=== PATIENT | female | born 1995 | race Hispanic/Latino ===

== ENCOUNTER 2021-12-14 00:27 | Emergency (ER) | payer MEDICAID ==
[~2021-12-14] VITALS: Ht 154.9 cm; Wt 96.2 kg
[2021-12-14 01:13] LABS: BASOPHILS % (AUTO) 0.4 % (0.0-5.0); EOSINOPHILS % (AUTO) 2.8 % (0.0-8.0); HEMATOCRIT 37.1 % (36-48); LYMPHOCYTES % (AUTO) 43.7 % (21.0-51.0); MEAN CORPUSCULAR HEMOGLOBIN 30.1 pg (27.0-33.0); MEAN CORPUSCULAR VOLUME 88.8 fL (79-99); NEUTROPHILS % (AUTO) 44.7 % (40.0-77.0); PLATELET COUNT (AUTO) 362 K/uL (130-400); RED BLOOD CELL COUNT(AUTO) 4.18 MIL/uL (4.00-5.50); RED CELL DISTRIBUTION WIDTH 13.2 % (11.0-15.5); WHITE BLOOD COUNT (AUTO) 7.1 K/uL (4.8-10.8)
[2021-12-14 01:19] LABS: CREATININE 0.6 mg/dL (0.5-1.5); POTASSIUM 3.7 mmol/L (3.5-5.1)
[2021-12-14 01:29] LABS: ALBUMIN 3.8 g/dL (3.5-5.0); TOTAL PROTEIN, SERUM 7.8 g/dL (6.0-8.3)
[2021-12-14 02:15] VITALS: BP 121/63
== END 2021-12-14 02:21 | disposition home or self-care (01) ==
LOC: EDH 00:27
DX: O20.0 Threatened abortion (principal); Z3A.01 Less than 8 weeks gestation of pregnancy
CPT/HCPCS: 36415; 80053; 84702; 85025; 86900; 86901

== ENCOUNTER 2022-09-17 20:53 | Emergency (ER) | payer MEDICAID ==
[~2022-09-17] VITALS: Ht 154.9 cm; Wt 93.9 kg
[2022-09-17 22:07] VITALS: BP 123/66
[2022-09-17 22:46] LABS: BASOPHILS % (AUTO) 0.2 % (0.0-5.0); EOSINOPHILS % (AUTO) 2.3 % (0.0-8.0); LYMPHOCYTES % (AUTO) 27.8 % (21.0-51.0); MEAN CORPUSCULAR HEMOGLOBIN 29.7 pg (27.0-33.0); MEAN CORPUSCULAR HGB CONC 33.9 g/dL (32.0-36.0); MEAN CORPUSCULAR VOLUME 87.5 fL (79-99); MONOCYTES % (AUTO) 8.1 % (3.0-13.0); NEUTROPHILS % (AUTO) 61.4 % (40.0-77.0); PLATELET COUNT (AUTO) 327 K/uL (130-400); RED BLOOD CELL COUNT(AUTO) 3.77 MIL/uL (4.00-5.50); RED CELL DISTRIBUTION WIDTH 13.1 % (11.0-15.5); WHITE BLOOD COUNT (AUTO) 9.1 K/uL (4.8-10.8)
[2022-09-17 23:00] LABS: CREATININE 0.7 mg/dL (0.5-1.5); POTASSIUM 3.5 mmol/L (3.5-5.1)
[2022-09-17 23:11] LABS: APPEARANCE,URINE CLOUDY (CLEAR); BILIRUBIN,URINE NEGATIVE (NEGATIVE); COLOR,URINE YELLOW (YELLOW); GLUCOSE, URINE (UA) NEGATIVE (NEGATIVE); KETONES,URINE NEGATIVE (NEGATIVE); LEUKOCYTE ESTERASE ,URINE 500 Leu/uL (NEGATIVE); NITRATE,URINE NEGATIVE (NEGATIVE); OCCULT BLOOD,URINE NEGATIVE (NEGATIVE); PH,URINE 6.5 (5.0-8.0); PROTEIN,URINE 20 mg/dL (NEGATIVE)
[2022-09-17 23:13] LABS: BACTERIA,URINE MOD /HPF (None Seen); MUCUS,URINE RARE LPF (None Seen); RBC,URINE 26-50 /HPF (0-1); SQUAMOUS EPITHELIAL CELL,UR MOD /HPF (0-2); WBC,URINE 26-50 /HPF (0-1)
[2022-09-18] MEDS ORDERED: CEPHALEXIN 500 MG CAPSULE PO ONE (01:30)
[2022-09-18] MEDS ORDERED: CEPH500B PO (01:32)
== END 2022-09-18 01:39 | disposition home or self-care (01) ==
LOC: EDH 20:53
DX: O23.41 Unspecified infection of urinary tract in pregnancy, first trimester (principal); N39.0 Urinary tract infection, site not specified; Z3A.13 13 weeks gestation of pregnancy
CPT/HCPCS: 36415; 76805; 80048; 81001; 85025; 87077; 87088; 87186

== ENCOUNTER 2023-01-25 23:15 | Observation (INO) | payer MEDICAID, OTHER ==
[~2023-01-25] VITALS: Ht 154.9 cm; Wt 91.6 kg
[~2023-01-25 23:15] MED LIST: CEPH500B PO
[2023-01-25 23:18] VITALS: BP 115/67; PULSE 100; RESP 16
[2023-01-25 23:52] LABS: APPEARANCE,URINE CLEAR (CLEAR); BILIRUBIN,URINE NEGATIVE (NEGATIVE); COLOR,URINE YELLOW (YELLOW); GLUCOSE, URINE (UA) 100 mg/dL (NEGATIVE); KETONES,URINE 5 mg/dL (NEGATIVE); LEUKOCYTE ESTERASE ,URINE MODERATE Leu/uL (NEGATIVE); NITRATE,URINE NEGATIVE (NEGATIVE); OCCULT BLOOD,URINE MODERATE (NEGATIVE); PH,URINE 5.5 (5.0-8.0); PROTEIN,URINE 100 mg/dL (NEGATIVE)
[2023-01-25 23:56] LABS: ADD UA MICROSCOPIC YES
[2023-01-25 23:59] LABS: WBC,URINE 26-50 /HPF (0-1)
[2023-01-26] LABS: BACTERIA,URINE Moderate /HPF (None Seen); TRICHOMONAS,URINE Many /LPF (None Seen)
[2023-01-26 00:01] LABS: AMPHET/METH SCREEN,URINE NEGATIVE (NEGATIVE); BARBITURATE SCREEN, URINE NEGATIVE (NEGATIVE); BENZODIAZEPINES SCREEN,URINE NEGATIVE (NEGATIVE); CANNABINOID SCREEN,URINE NEGATIVE (NEGATIVE); COCAINE SCREEN,URINE NEGATIVE (NEGATIVE); OPIATE SCREEN,URINE NEGATIVE (NEGATIVE); PHENCYCLIDINE SCREEN,URINE NEGATIVE (NEGATIVE)
== END 2023-01-26 00:45 | disposition home or self-care (01) ==
LOC: EDH 23:15 → LDH 23:16 → EDH 23:25
PROVIDERS: ADMIT Obstetrics & Gynecology; ATTEND Obstetrics & Gynecology
DX: O46.93 Antepartum hemorrhage, unspecified, third trimester (principal); O26.893 Other specified pregnancy related conditions, third trimester; K59.00 Constipation, unspecified; Z79.899 Other long term (current) drug therapy; Z3A.32 32 weeks gestation of pregnancy
CPT/HCPCS: 80305; 87088; 81001; G0379; G0378

== ENCOUNTER 2023-03-12 12:11 | Observation (INO) | payer OTHER ==
[~2023-03-12] VITALS: Ht 154.9 cm; Wt 90.7 kg
[2023-03-12 13:06] LABS: APPEARANCE,URINE TURBID (CLEAR); BILIRUBIN,URINE NEGATIVE (NEGATIVE); COLOR,URINE LIGHT-ORANGE (YELLOW); GLUCOSE, URINE (UA) NEGATIVE (NEGATIVE); KETONES,URINE NEGATIVE (NEGATIVE); LEUKOCYTE ESTERASE ,URINE 500 Leu/uL (NEGATIVE); NITRATE,URINE NEGATIVE (NEGATIVE); OCCULT BLOOD,URINE MODERATE (NEGATIVE); PROTEIN,URINE 100 mg/dL (NEGATIVE)
[2023-03-12 13:08] LABS: ADD UA MICROSCOPIC YES
[2023-03-12 13:13] LABS: RBC,URINE TNTC /HPF (0-1); SQUAMOUS EPITHELIAL CELL,UR MANY /HPF (0-2); WBC CLUMP MANY /HPF (0-1); WBC,URINE TNTC /HPF (0-1)
== END 2023-03-12 15:50 | disposition home or self-care (01) ==
LOC: LDH 12:11
PROVIDERS: ADMIT Internal Medicine; ATTEND Internal Medicine
DX: O26.893 Other specified pregnancy related conditions, third trimester (principal); N89.8 Other specified noninflammatory disorders of vagina; Z79.899 Other long term (current) drug therapy; Z3A.38 38 weeks gestation of pregnancy
CPT/HCPCS: 87088; 81001; 76805; G0378 ×3; G0379

== ENCOUNTER 2025-03-21 11:39 | Emergency (ER) | payer MEDICAID ==
[~2025-03-21] VITALS: Ht 154.9 cm; Wt 95.3 kg
--- NOTE | 2025-03-21 12:16 | ERN ---
General Chief Complaint: Earache Stated Complaint: EARS CLOGGED Time Seen by MD: 11:50 Source: patient History of Present Illness Initial Comments 30-year-old female who is at 35 weeks gestation presented to ED with symptoms of runny nose, sore throat, cough since 3 days patient. Patient also started to have clogged ears since yesterday night. Patient denies fevers, chills, s hortness of breath, chest pain. Allergies: Coded Allergies: No Known Allergies (Unverified Allergy, Unknown, 12/14/21) Home Meds Active Scripts Cephalexin Monohydrate (Keflex) 500 Mg Cap, 500 MG PO QID for 7 Days, #28 CAP Prov:JAMAAL YO Sr., MD 09/18/22 Past Medical History Past Medical History: No Pertinent History Past Surgical History: None Social History Social History: Negative Female( History) : 3 Para: 1 Aborts: 1 ROS Dictation REVIEW OF SYSTEMS CONSTITUTIONAL: Denies fevers, chills, or night sweats. No unintentional weight loss reported. NEUROLOGICAL: Denies headache, motor weakness, sensory deficit, vertigo/spinning sensation CARDIOVASCULAR: Denies any exertional angina, dyspnea on exertion, orthopnea, paroxysmal nocturnal dyspnea, palpitations PULMONARY: Admits to runny nose, dry cough and sore throat. Denies any shortness of breath,, phlegm/sputum, hemoptysis, pleuritic chest pain. GASTROINTESTINAL: Denies any type of dysphagia to either liquids or solids. Denies nausea, vomiting, pyrosis, early satiety, abdominal pain, diarrhea, constipation GENITOURINARY: Denies frequency, urgency, nocturia, hematuria or incontinence DERMATOLOGIC: Denies rashes, itching, redness. Physical Exam Physical Exam Dictation VITAL SIGNS: Reviewed. GENERAL APPEARANCE: Alert, oriented x3 HEAD AND FACE: Non-traumatic. EYES: PERRL, pink conjunctivas, eyelid no trauma, anterior chamber clear. EARS: Pinnas intact and no signs of trauma or erythema. Left ear canal with moderate amount of wax. Patent right external artery canal. TMs no erythema. NOSE: Watery drainage, no bleeding. OROPHARYNX: Mouth normal, teeth no caries, tongue pink. Pharynx clear, no erythema. Tonsils no exudates, no abscesses noted. Mucous membrane moist. NECK: Supple, non-tender, no thyromegaly, no masses, no JVD, no bruits. BREAST: Deferred. CHEST: No tenderness, no crepitus, no paradoxical movement, no retractions. LUNGS: Clear, well-ventilated, symmetric, no rales, no wheezing, no rhonchi, no stridor, good breath sounds bilaterally. HEART: Regular rate, regular rhythm, no murmur, no gallops. VASCULAR: No peripheral edema. ABDOMEN: Soft, positive bowel sounds, nondistended, no guarding, nontender, no rebound, no masses no hepatomegaly, no splenomegaly, no Michael's sign, no hernias. RECTAL: Deferred. GENITAL: Deferred. NEUROLOGICAL: Normal speech, gross motor function intact, gross sensory function intact. MUSCULOSKELETAL: Neck nontender, full range of motion, back nontender, full range of motion. EXTREMITIES: Nontender, full range of motion. SKIN: Color pink, dry, no turgor, no rash, no lacerations, no abrasions, no contusions. LYMPHATICS: Deferred. Results Laboratory and Microbiology Lab and Micro Result Laboratory Tests Test 03/21/25 12:05 Influenza Type A Antigen Negative For Type A Influenza Type B Antigen Negative For Type B SARS-CoV-2 Antigen (Rapid) PRESUMPTIVE NEGATIVE Group A Streptococcus Rapid positive (NEGATIVE) *A Labs Reviewed?: Yes MDM MDM: Differential diagnosis: Acute rhinosinusitis, Acute pharyngitis, Post nasal drip, maxillary sinusitis Rationale: Tests considered and ordered secondary to shared decision making include: Previous outside records reviewed: Old ER visits. Risk of complication and/or morbidity or mortality of patient management: None Medications-Per medication reconciliation Need for hospitalization: Patient does not meet criteria for hospitalization. Need for emergency major/minor surgery: No There are no social concerns with this patient. Prescription drug management Prescriptions will include symptomatic care Patient's prior external medical records from other ER visits were reviewed by me as indicated. Prior testing and results from previous visits were reviewed. Prior tests were taken into account with medical decision making and resource utilization, independent historian/historians were used to obtain complete medical history. I independently interpreted the test that were performed, results were reviewed by me and considered findings on radiology if ordered. * Medical management and examination interpretation discussions were had by me with other qualified healthcare professionals as indicated for the patient's care. * Laboratory workup positive for strep pharyngitis. Patient will be discharged in stable condition with a diagnosis of sinusitis or pharyngitis ED Course Orders Procedure Category Date Status Time Rapid (Group A Strep) LAB 03/21/25 In Process 11:58 Covid19 (Sars Antigen LAB 03/21/25 In Process Rapid) 11:58 Influenza Type A & B, LAB 03/21/25 In Process Rapid 11:58 Vital Signs Date Time Temp Pulse Resp B/P (MAP) Pulse Ox O2 Delivery O2 Flow Rate FiO2 03/21/25 12:12 97.7 83 20 131/75 98 Room Air* 0 21 03/21/25 11:40 97.7 93 20 131/75 98 Room Air 0 DX & DISP Disposition: Discharge Departure Impression: Primary Impression: Acute maxillary sinusitis Additional Impression: Strep pharyngitis Critical Time: 30 minutes Condition: Stable Scripts Fluticasone Propionate (Flonase Nasal [place]) 50 Mcg/Actuation [place] 2 SPRAY NS DAILY, #16 GM 0 Refills Prov: ANGELA JOSEPH MD 03/21/25 Amoxicillin/Potassium Clav (Amox Tr-K Clv 875-125 mg Tab) 875 Mg-125 Mg Tablet 1 TAB PO BID for 10 Days, #20 TAB 0 Refills Prov: ANGELA JOSEPH MD 03/21/25 Additional Instructions: You presented with runny nose, cough, sore throat and clogged years. Swabs for flu, COVID, and strep are negative. F/u with you PCP and use nasal washes for runny nose and honey for cough and sore throat relief. Referrals: RONNIE COSME Jr., MD (PCP) Time of Disposition: 14:06 ALTAF LEE MD Mar 21, 2025 12:16 ANGELA JOSEPH MD Mar 21, 2025 14:06
[2025-03-21 12:40] LABS: INFLUENZA TYPE A Negative For Type A (NEGATIVE); INFLUENZA TYPE B Negative For Type B (NEGATIVE)
[2025-03-21 12:42] LABS: COVID19 (SARS ANTIGEN RAPID) PRESUMPTIVE NEGATIVE (NEGATIVE)
[2025-03-21 14:04] LABS: RAPID GROUP A STREP positive (NEGATIVE)
[2025-03-21 14:08] VITALS: BP 127/72; PULSE 80; RESP 20; TEMP 97.7; O2SAT 98
== END 2025-03-21 14:09 | disposition home or self-care (01) ==
LOC: EDH 11:39
DX: O99.513 Diseases of the respiratory system complicating pregnancy, third trimester (principal); J02.0 Streptococcal pharyngitis; J01.00 Acute maxillary sinusitis, unspecified; H93.8X3 Other specified disorders of ear, bilateral; O99.893 Other specified diseases and conditions complicating puerperium; Z20.822 Contact with and (suspected) exposure to COVID-19; Z3A.35 35 weeks gestation of pregnancy
CPT/HCPCS: 87426; 87804; 87880; 99283

== ENCOUNTER 2025-03-25 00:30 | Emergency (ER) | payer MEDICAID ==
[~2025-03-25] VITALS: Ht 154.9 cm; Wt 95.3 kg
[~2025-03-25 00:30] MED LIST changes: +AMOX1TAB16 PO; +FLUT16H NS
[2025-03-25] MEDS ORDERED: OXYM30SP27 NS (02:42)
--- NOTE | 2025-03-25 02:42 | ERN ---
General Chief Complaint: Other Problems Stated Complaint: BILATERAL EARS " CLOGGED" ONE WEEK Time Seen by MD: 00:53 Time Seen by Midlevel: 00:53 Source: patient History of Present Illness Initial Comments Patient is a 30-year-old female presenting to the ER for evaluation of "clogged ears". Patient has been battling an upper respiratory infection the last couple of days and feels like if her ears are clogged. Denies any other symptoms she has been taking Flonase with little to no relief. Patient reports being 35 weeks . Allergies: Coded Allergies: No Known Allergies (Unverified Allergy, Unknown, 12/14/21) Home Meds Active Scripts Fluticasone Propionate (Flonase Nasal [place]) 50 Mcg/Actuation [place], 2 SPRAY NS DAILY, #16 GM 0 Refills Prov:ANGELA JOSEPH MD 03/21/25 Amoxicillin/Potassium Clav (Amox Tr-K Clv 875-125 mg Tab) 875 Mg-125 Mg Tablet, 1 TAB PO BID for 10 Days, #20 TAB 0 Refills Prov:ANGELA JOSEPH MD 03/21/25 Cephalexin Monohydrate (Keflex) 500 Mg Cap, 500 MG PO QID for 7 Days, #28 CAP Prov:JAMAAL YO Sr., MD 09/18/22 Past Medical History Past Medical History: Other Medical History Other: ESBL Past Surgical History: None Social History Social History: Negative Female( History) : 3 Para: 2 Aborts: 0 ROS Dictation CONSTITUTIONAL: Negative except for HPI HEAD/FACE: Negative except for HPI EENT: Negative except for HPI RESPIRATORY: Negative except for HPI GASTROINTESTINAL/ABDOMINAL: Negative except for HPI GENITOURINARY: Negative except for HPI MUSCULOSKELETAL: Negative except for HPI INTEGUMENTARY: Negative except for HPI NEUROLOGICAL/PSYCH: Negative except for HPI HEMATOLOGIC/LYMPHATIC: Negative except for HPI All Systems Negative, Except as noted above. 13 point review of systems assessed and all negative except for above. Physical Exam Physical Exam Dictation Vital Signs reviewed General Appearance: Alert, oriented x 3, no acute distress, well developed, nourished. Head and Face: non-traumatic. Eyes: PERRL, pink conjunctivas, eyelid no trauma, anterior chamber with arcus senilis. Ears: Pinnas intact and no signs of trauma or erythema ear canals clear and no discharge TM no erythema Nose: No discharge, no bleeding. Oropharynx: Mouth normal, tongue pink, pharynx clear,no erythema, tonsils no exudates, no abscesses noted, mucous membrane moist Neck: Supple, non-tender, no thyromegaly, no masses, no JVD, no bruits Breast:Deferred Chest:No tenderness, no crepitus, no paradoxical movement, no retractions Lungs:Clear, well-ventilated, symmetric, no rales, no wheezing, no rhonchi, no stridor, good breath sounds bilaterally Heart: Regular rate, regular rhythm, no murmur, no gallops Vascular: no peripheral edema, Abdomen: Soft, positive bowel sounds, nondistended, no guarding, nontender, no rebound, no masses no hepatomegaly, no splenomegaly, no Michael's sign, no hernias. Rectal: Deferred Genital: Deferred Neurological: Normal speech, motor function intact, sensory function intact Musculoskeletal: Neck nontender, full range of motion, back nontender, full range of motion, Extremities: nontender, full range of motion Skin: Color pink, dry, no turgor, no rash, no lacerations, no abrasions, no contusions. Lymphatic: Deferred MDM MDM: Differential diagnosis: Upper respiratory infection, otitis media, otitis externa, cerumen impaction There are no social concerns with this patient. Prescription drug management Prescriptions will include: Afrin Medical management and examination interpretation discussions were had by me with other qualified healthcare professionals as indicated for the patient's care. ED Course Orders Procedure Category Date Status Time Oxymetazoline Hcl PHA 03/25/25 In Process [place] (Afrin) 02:30 Current Medications Medications (Trade) Dose Ordered Sig/Vivian Route PRN Reason Start Time Stop Time Status Last Admin Dose Admin Oxymetazoline HCl (AFrin) 1 sprays ONCE EN 03/25/25 02:30 04/24/25 02:29 Vital Signs Date Time Temp Pulse Resp B/P (MAP) Pulse Ox O2 Delivery O2 Flow Rate FiO2 03/25/25 00:31 97.3 84 18 123/61 99 Room Air DX & DISP Disposition: Discharge Departure Impression: Primary Impression: Upper respiratory infection Additional Impression: Nasal congestion Condition: Stable Scripts Oxymetazoline HCl (Afrin) 0.05 % [place] 1 SPRAY NS BID for 3 Days, #15 ML 0 Refills Prov: SHERLEY LOREDO 03/25/25 Time of Disposition: 02:40 I have reviewed the case, and I agree with, Diagnosis and Plan I performed the substantive portion of the visit. I have reviewed and personally made and approve the management plan that is documented in the note by myself or the [facility]. I acknowledge for responsibility for the patient's management plan. SHERLEY LOREDO PAC Mar 25, 2025 02:42
[2025-03-25] MEDS: OXYmetazoline HCL SPRAY 100 SPRAYS/15 ML BOTTLE EN SCH (02:46)
[2025-03-25 02:55] VITALS: BP 125/64; PULSE 80; RESP 18; TEMP 98; O2SAT 100
== END 2025-03-25 02:56 | disposition home or self-care (01) ==
LOC: EDH 00:30
DX: O99.513 Diseases of the respiratory system complicating pregnancy, third trimester (principal); J06.9 Acute upper respiratory infection, unspecified; Z3A.35 35 weeks gestation of pregnancy
CPT/HCPCS: 99282; 99283